=== PATIENT | male | born 1955 ===

== ENCOUNTER 2021-06-23 17:13 | Emergency (ER) | payer MEDICARE, OTHER ==
[2021-06-23 17:31] VITALS: BP 147/85; PULSE 110
--- NOTE | 2021-06-23 17:46 | PCM.SN.2 ---
- Free Text/Narrative Note: During the triage process the patient did go to the bathroom, and states he was able to void. He states "I fixed the problem myself" and would like to leave the emergency room. He declines wanting to be evaluated by a provider. I did give him information on signs and symptoms that would prompt him to return to the emergency room. Patient is alert, awake and oriented x3. Patient is exhibiting both competency as well as capacity for medical decision making. Patient understands that they may return to the emergency room if they change their mind and would like further care/treatment. Time Documentation
== END 2021-06-23 17:46 ==
LOC: MW.ED 17:13
DX: Z53.21 Procedure and treatment not carried out due to patient leaving prior to being seen by health care provider (principal)

== ENCOUNTER 2022-10-09 04:36 | Emergency (ER) | payer MEDICARE, OTHER ==
[2022-10-09] MEDS ORDERED: Ondansetron 4 MG/2 ML SDV IVPUSH ONE (04:54)
[2022-10-09] MEDS ORDERED: Lactated Ringers 1,000 ML IV STA ×2 (04:54→05:46)
[2022-10-09] MEDS ORDERED: Iopamidol 755 MG/ML 500 ML Multipack Bottle IVPUSH ONE (05:13)
[2022-10-09 05:22] LABS: CARBON DIOXIDE,CO2 27.9 mmol/L (21.0-32.0); POTASSIUM,K 3.6 mmol/L (3.5-5.1)
[2022-10-09] MEDS ORDERED: metroNIDAZOLE/Normal Saline 500 MG in Premix Bag 1 BAG IV ONE ×2 (06:34→13:16)
[2022-10-09] MEDS ORDERED: Piperacillin/Tazobactam 3.375 GM in Sodium Chloride 0.9% 50 ML IV ONE ×2 (06:34→13:16)
[2022-10-09 07:19] LABS: CORONAVIRUS COVID-19 NAA NEGATIVE (NEGATIVE); INFLUENZA A NAA NEGATIVE (NEGATIVE); INFLUENZA B NAA NEGATIVE (NEGATIVE); RESPIRATORY SYNCYTIAL VIR NAA NEGATIVE (NEGATIVE)
[2022-10-09] MEDS ORDERED: diphenhydrAMINE 50 MG/ML SDV IVPUSH ONE (08:25)
[2022-10-09] MEDS ORDERED: Metoclopramide 10 MG/2 ML SDV IVPUSH ONE (08:25)
== END 2022-10-09 14:25 ==
LOC: MW.ED 04:36
DX: K57.20 Diverticulitis of large intestine with perforation and abscess without bleeding (principal); I10 Essential (primary) hypertension; E11.9 Type 2 diabetes mellitus without complications; Z79.899 Other long term (current) drug therapy; Z20.822 Contact with and (suspected) exposure to COVID-19
CPT/HCPCS: 0241U; 36415; 74177; 80053; 83605; 83690; 85025; 85610; 87040; 96361; 96365; 96366; 96367; 96375; 99285; J1200; J2405; J2543; J2765; J3490; J7050; J7120; Q9967; 99284